=== PATIENT | female | born 1970 | race Caucasian/White ===

== ENCOUNTER 2017-11-03 06:10 | Inpatient (IN) | payer MEDICAID ==
[~2017-11-03] VITALS: Ht 170.2 cm; Wt 90.3 kg
[~2017-11-03 06:10] MED LIST: ALBU8.5H8 IH; ASPI81TA52 PO; ATOR80TA PO; CLOP75TA33 PO; FLO44IN INH; FLUT16SP26 BOTHNARES; HYDR-569 PO; LISI-600 PO; METF500T PO; METO50TA17 PO; NITR0.4T48 SL; PANT-47 PO; SENN1TAB72 PO; ZOLP5TAB8 PO
[2017-11-03] MEDS ORDERED: azithromycin/NS 500mg/250ml 250 ML IV ONE (07:40)
[2017-11-03] MEDS ORDERED: methylPREDNISolone sod succ 125mg/2ml vial IV ONE (07:40)
[2017-11-03] MEDS ORDERED: normal saline 1000ML IV soln IVB ONE (07:40)
[2017-11-03] MEDS ORDERED: albuterol 2.5 MG/3 ML nebule NEB ONE ×2 (07:40→11:40)
[2017-11-03 08:11] LABS: ABG BASE EXCESS 0.6 mmol/L (-2.0-3.0); ABG HCO3 23.7 mmol/L (22.0-26.0); ABG OXYGEN SATURATION 90.8 % (95-98); ABG PCO2 (T) 33.6 mmHg (32.0-45.0); ABG PH (T) 7.466 (7.350-7.450); ABG PO2 (T) 52.4 mmHg (83-108); ALLEN'S TEST Positive; FCOHb 0.4 % (0.5-1.5); FMetHb 0.1 % (0.3-1.12); FO2Hb 90.3 % (94-100); RESPIRATORY RATE (OBSERVED) 20 b/min; TOTAL HEMOGLOBIN 14.9 G/dl (12.0-16.0)
[2017-11-03 08:42] LABS: BASOPHILS % (AUTO) 0.2 % (0-1); EOSINOPHILS % (AUTO) 0 % (0-6); HEMATOCRIT 43.2 % (35.0-45.0); LYMPHOCYTES # (AUTO) 1.2 X10'3 (1.1-4.8); LYMPHOCYTES % (AUTO) 18.1 % (21-51); MEAN CORPUSCULAR HEMOGLOBIN 30.9 PG (27.0-31.0); MEAN CORPUSCULAR HGB CONC 34.6 % (33.0-36.5); MEAN CORPUSCULAR VOLUME 89.2 FL (78-98); MEAN PLATELET VOLUME 10.1 FL (7.4-10.4); MONOCYTES # (AUTO) 0.6 X10'3 (0-0.9); MONOCYTES % (AUTO) 8.9 % (2-12); NEUTROPHILS # (AUTO) 4.8 X10'3 (1.8-7.7); NEUTROPHILS % (AUTO) 72.8 % (42-75); PLATELET COUNT 145 X10'3 (140-440); RED BLOOD COUNT 4.85 X10'6 (4.20-5.60); RED CELL DISTRIBUTION WIDTH 12.6 % (11.5-14.5); WHITE BLOOD COUNT 6.6 X10'3 (4.5-11.0)
[2017-11-03 08:51] LABS: PARTIAL THROMBOPLASTIN TIME 25 SECONDS (22-32); PROTHROMBIN TIME 10.6 SECONDS (9.0-12.0)
[2017-11-03 09:16] LABS: ALANINE AMINOTRANSFERASE 35 U/L (12-78); ALBUMIN 2.9 G/DL (3.4-5.0); ALBUMIN/GLOBULIN RATIO 0.6 (1.1-1.5); ALKALINE PHOSPHATASE 94 IU/L (46-116); ANION GAP 14 (8-16); ASPARTATE AMINO TRANSFERASE 29 U/L (10-37); BILIRUBIN,TOTAL 0.5 MG/DL (0.1-1.0); BLOOD UREA NITROGEN 15 MG/DL (7-18); BUN/CREATININE RATIO 12.5 (6.6-38.0); CALCIUM 8.7 MG/DL (8.5-10.1); CHLORIDE 96 MMOL/L (99-107); GLUCOSE 310 MG/DL (70-104); POTASSIUM 3.3 MMOL/L (3.5-5.1); SODIUM 136 MMOL/L (135-145); TOTAL CARBON DIOXIDE 26.5 MMOL/L (24-32); TOTAL PROTEIN 7.7 G/DL (6.4-8.2); eGFR 48 ML/MIN
[2017-11-03] MEDS ORDERED: acetaminophen 325mg tablet PO ONE (10:50)
[2017-11-03] MEDS ORDERED: MULT-933 PO (11:37)
[2017-11-03] MEDS ORDERED: sodium chloride 0.45% 1,000 ML IV SCH (12:16)
[2017-11-03] MEDS ORDERED: acetaminophen 325mg tablet PO PRN (12:20)
[2017-11-03] MEDS ORDERED: potassium Cl 40MEQ/NS 500ml 500 ML IV PRN ×2 (12:20)
[2017-11-03] MEDS: K and/or MAG REPLACEMENT MC SCH (12:20)
[2017-11-03] MEDS ORDERED: magnesium hydroxide 30ml (MOM) UD suspension PO PRN (12:20)
[2017-11-03] MEDS ORDERED: ondansetron/PF 4mg/2ml inj IV PRN (12:20)
[2017-11-03] MEDS ORDERED: potassium Cl 20 mEq SR tablet PO PRN (12:20)
[2017-11-03] MEDS ORDERED: mag hydrox/Alum hydrox/simeth 30ml oral suspension PO PRN (12:20)
[2017-11-03] MEDS: potassium CL 20mEq in D5-1/2NS 1,000 ML IV SCH (15:57)
[2017-11-03 18:30] VITALS: BP 149/88
[2017-11-03] MEDS ORDERED: temazepam 15mg capsule PO PRN (21:00)
[2017-11-03] MEDS ORDERED: temazepam 15mg capsule PO ONE (22:55)
[2017-11-04] VITALS: BP 148/96
[2017-11-04] MEDS ORDERED: glucagon, human recombinant 1mg kit SUBCUT PRN (02:00)
[2017-11-04] MEDS ORDERED: MESSAGE TO PHARMACY PO ONE (02:00)
[2017-11-04] MEDS ORDERED: dextrose 50%-water 50ml dispensing syringe IV PRN ×2 (02:00)
[2017-11-04] MEDS ORDERED: dextrose ORAL solution 15 GM/59 ML bottle PO PRN ×2 (02:00)
[2017-11-04 07:46] VITALS: BP 156/98
[2017-11-04] MEDS: K and/or MAG REPLACEMENT MC SCH (08:00)
[2017-11-04] MEDS: azithromycin/NS 500mg/250ml 250 ML IV SCH (08:58)
[2017-11-04] MEDS: insulin Lispro (HumaLOG) vial - multi-dose SQ SCH ×2 (09:07→14:26)
[2017-11-04] MEDS: albuterol 2.5 MG/3 ML nebule NEB PRN ×2 (09:39→14:42)
[2017-11-04 11:00] VITALS: BP 123/84
[2017-11-04] MEDS: potassium CL 20mEq in D5-1/2NS 1,000 ML IV SCH ×2 (11:00→17:14)
[2017-11-04] MEDS: levoFLOXACIN 750MG TABLET PO SCH (12:05)
[2017-11-04] MEDS: potassium Cl 20 mEq SR tablet PO PRN ×3 (12:06→21:20)
[2017-11-04] MEDS: lactobacillus rhamnosus 10,000 MMU CELLS/CAPSULE PO SCH (17:13)
[2017-11-04 18:00] VITALS: BP 123/78
[2017-11-04] MEDS ORDERED: insulin glargine (Lantus) pen - multi-dose SQ SCH (21:00)
[2017-11-05] VITALS: BP 145/100
[2017-11-05] MEDS ORDERED: NYSPWD TP (03:20)
[2017-11-05] MEDS: azithromycin/NS 500mg/250ml 250 ML IV SCH (07:39)
[2017-11-05] MEDS: lactobacillus rhamnosus 10,000 MMU CELLS/CAPSULE PO SCH (07:42)
[2017-11-05] MEDS: albuterol 2.5 MG/3 ML nebule NEB PRN (07:43)
[2017-11-05 07:55] LABS: ALANINE AMINOTRANSFERASE 88 U/L (12-78); ALBUMIN 2.4 G/DL (3.4-5.0); ALBUMIN/GLOBULIN RATIO 0.6 (1.1-1.5); ALKALINE PHOSPHATASE 101 IU/L (46-116); ANION GAP 7 (8-16); ASPARTATE AMINO TRANSFERASE 81 U/L (10-37); BILIRUBIN,TOTAL 0.3 MG/DL (0.1-1.0); BLOOD UREA NITROGEN 18 MG/DL (7-18); BUN/CREATININE RATIO 18.2 (6.6-38.0); CALCIUM 8.5 MG/DL (8.5-10.1); CHLORIDE 104 MMOL/L (99-107); CREATININE 0.99 MG/DL (0.40-0.90); GLUCOSE 229 MG/DL (70-104); POTASSIUM 4.1 MMOL/L (3.5-5.1); SODIUM 140 MMOL/L (135-145); TOTAL CARBON DIOXIDE 28.6 MMOL/L (24-32); TOTAL PROTEIN 6.4 G/DL (6.4-8.2); eGFR 60 ML/MIN
[2017-11-05 08:00] VITALS: BP 152/100
[2017-11-05] MEDS: K and/or MAG REPLACEMENT MC SCH (08:00)
[2017-11-05] MEDS: insulin Lispro (HumaLOG) vial - multi-dose SQ SCH (09:30)
[2017-11-05] MEDS ORDERED: LEVO750T46 PO (10:58)
[2017-11-05 11:00] VITALS: BP 134/86
[2017-11-05] MEDS ORDERED: AZIT500T3 PO (11:20)
[2017-11-05] MEDS: levoFLOXACIN 750MG TABLET PO SCH (11:48)
== END 2017-11-05 12:46 | disposition home or self-care (01) | DRG 139 ==
LOC: ER 06:10 → ED HOLD 12:16 → SUR 3N 18:32
PROVIDERS: ADMIT Internal Medicine; ATTEND Internal Medicine
DX: J18.9 Pneumonia, unspecified organism (principal); J96.91 Respiratory failure, unspecified with hypoxia; J44.0 Chronic obstructive pulmonary disease with (acute) lower respiratory infection; J44.1 Chronic obstructive pulmonary disease with (acute) exacerbation; I10 Essential (primary) hypertension; E87.6 Hypokalemia; E11.9 Type 2 diabetes mellitus without complications; E78.00 Pure hypercholesterolemia, unspecified; E78.5 Hyperlipidemia, unspecified; E89.0 Postprocedural hypothyroidism; F32.9 Major depressive disorder, single episode, unspecified; F41.9 Anxiety disorder, unspecified; I25.10 Atherosclerotic heart disease of native coronary artery without angina pectoris; I25.2 Old myocardial infarction; Z80.9 Family history of malignant neoplasm, unspecified; Z82.3 Family history of stroke; Z83.3 Family history of diabetes mellitus; Z85.3 Personal history of malignant neoplasm of breast; Z88.1 Allergy status to other antibiotic agents; Z90.710 Acquired absence of both cervix and uterus; Z88.8 Allergy status to other drugs, medicaments and biological substances; Z79.82 Long term (current) use of aspirin; Z79.84 Long term (current) use of oral hypoglycemic drugs; Z79.899 Other long term (current) drug therapy; Z90.49 Acquired absence of other specified parts of digestive tract; Z72.0 Tobacco use
CPT/HCPCS: 36415; 36600; 71045; 80053; 82803; 82948; 83036; 83605; 84132; 84484; 85018; 85025; 85610; 85730; 87040; 87070; 87502; 87503; 93005; 94640; 94667; 94760; 96365; 96375; 99291; J0456; J1815; J2930; J7030

== ENCOUNTER 2017-11-28 01:06 | Inpatient (IN) | payer MEDICAID ==
[~2017-11-28] VITALS: Ht 170.2 cm; Wt 95.5 kg
[~2017-11-28 01:06] MED LIST changes: -HYDR-569 PO; +LEVO750T46 PO; +MULT-933 PO; +NYSPWD TP
[2017-11-28] MEDS ORDERED: furosemide 10 MG/1 ML 10ml inj IV ONE (02:00)
[2017-11-28 02:13] LABS: ALANINE AMINOTRANSFERASE 70 U/L (12-78); ALBUMIN 2.7 G/DL (3.4-5.0); ALBUMIN/GLOBULIN RATIO 0.7 (1.1-1.5); ALKALINE PHOSPHATASE 137 IU/L (46-116); ANION GAP 7 (8-16); ASPARTATE AMINO TRANSFERASE 36 U/L (10-37); BILIRUBIN,TOTAL 0.4 MG/DL (0.1-1.0); BLOOD UREA NITROGEN 17 MG/DL (7-18); BUN/CREATININE RATIO 17.2 (6.6-38.0); CALCIUM 8.5 MG/DL (8.5-10.1); CHLORIDE 101 MMOL/L (99-107); CREATININE 0.99 MG/DL (0.40-0.90); GLUCOSE 351 MG/DL (70-104); SODIUM 139 MMOL/L (135-145); TOTAL CARBON DIOXIDE 31.1 MMOL/L (24-32); TOTAL PROTEIN 6.5 G/DL (6.4-8.2); eGFR 60 ML/MIN
[2017-11-28 02:42] LABS: BASOPHILS # (AUTO) 0.1 X10'3 (0-0.2); BASOPHILS % (AUTO) 1.1 % (0-1); EOSINOPHILS # (AUTO) 0.3 X10'3 (0-0.9); HEMATOCRIT 39.5 % (35.0-45.0); HEMOGLOBIN 13.7 g/dl (12.0-16.0); LYMPHOCYTES # (AUTO) 1.7 X10'3 (1.1-4.8); LYMPHOCYTES % (AUTO) 17.2 % (21-51); MEAN CORPUSCULAR HEMOGLOBIN 31.3 PG (27.0-31.0); MEAN CORPUSCULAR HGB CONC 34.8 % (33.0-36.5); MEAN PLATELET VOLUME 9.7 FL (7.4-10.4); MONOCYTES # (AUTO) 0.6 X10'3 (0-0.9); MONOCYTES % (AUTO) 6.3 % (2-12); NEUTROPHILS # (AUTO) 7.1 X10'3 (1.8-7.7); NEUTROPHILS % (AUTO) 72.4 % (42-75); PLATELET COUNT 200 X10'3 (140-440); RED BLOOD COUNT 4.39 X10'6 (4.20-5.60); RED CELL DISTRIBUTION WIDTH 13.4 % (11.5-14.5); WHITE BLOOD COUNT 9.9 X10'3 (4.5-11.0)
[2017-11-28 02:56] LABS: D-DIMER 1.33 MG/L FEU (0-0.50); PARTIAL THROMBOPLASTIN TIME 23 SECONDS (22-32); PROTHROMBIN TIME 10.7 SECONDS (9.0-12.0)
[2017-11-28] MEDS ORDERED: iohexol 350MG/ML 100ml bottle IV ONE (03:18)
[2017-11-28] MEDS ORDERED: magnesium 4gm in 100ml NS 100 ML IV PRN (05:05)
[2017-11-28] MEDS ORDERED: ondansetron/PF 4mg/2ml inj IV PRN (05:05)
[2017-11-28] MEDS ORDERED: potassium Cl 40MEQ/NS 500ml 500 ML IV PRN ×2 (05:05)
[2017-11-28] MEDS ORDERED: magnesium 2GM in 50ml NS 50 ML IV PRN (05:05)
[2017-11-28] MEDS ORDERED: potassium Cl 20 mEq SR tablet PO PRN (05:05)
[2017-11-28] MEDS ORDERED: dextrose ORAL solution 15 GM/59 ML bottle PO PRN ×2 (05:10)
[2017-11-28] MEDS ORDERED: glucagon, human recombinant 1mg kit SUBCUT PRN (05:10)
[2017-11-28] MEDS ORDERED: dextrose 50%-water 50ml dispensing syringe IV PRN ×2 (05:10)
[2017-11-28] MEDS ORDERED: MESSAGE TO PHARMACY PO ONE (05:10)
[2017-11-28] MEDS ORDERED: albuterol 2.5 MG/3 ML nebule NEB PRN (05:50)
[2017-11-28] MEDS: K and/or MAG REPLACEMENT MC SCH (08:00)
[2017-11-28] MEDS: multivitamins, therapeutics tablet PO SCH (08:12)
[2017-11-28] MEDS: metFORMIN 500mg tablet PO SCH ×2 (08:12→21:19)
[2017-11-28] MEDS: aspirin 81mg tablet.DR PO SCH (08:12)
[2017-11-28] MEDS: metoprolol tartrate 50mg tablet PO SCH ×2 (08:12→21:19)
[2017-11-28] MEDS: clopidogrel 75mg tablet PO SCH (08:12)
[2017-11-28] MEDS: lisinopril 20mg tablet PO SCH (08:12)
[2017-11-28] MEDS: pantoprazole 40mg Tablet.DR PO SCH (08:13)
[2017-11-28] MEDS: furosemide 10 MG/1 ML 10ml inj IV SCH ×2 (08:14→21:20)
[2017-11-28] MEDS: fluticasone furoate 100MCG/puff inhaler IH SCH (09:06)
[2017-11-28 09:37] VITALS: BP 112/77
[2017-11-28] MEDS ORDERED: pneumococcal 23-VAL P-sac vacc 25 mcg/0.5ml vial IMVAC ONE (10:00)
[2017-11-28 11:00] VITALS: BP 106/75
[2017-11-28] MEDS: insulin Lispro (HumaLOG) vial - multi-dose SQ SCH ×2 (13:31→18:48)
[2017-11-28 15:00] VITALS: BP 114/80
[2017-11-28 19:00] VITALS: BP 115/80
[2017-11-28] MEDS: insulin glargine (Lantus) pen - multi-dose SQ SCH (21:17)
[2017-11-28] MEDS: atorvastatin 20mg tablet PO SCH (21:18)
[2017-11-28] MEDS: zolpidem 5mg tablet PO SCH (21:19)
[2017-11-28 23:00] VITALS: BP 115/80
[2017-11-29 03:00] VITALS: BP 108/68
[2017-11-29 05:12] LABS: BASOPHILS # (AUTO) 0.1 X10'3 (0-0.2); BASOPHILS % (AUTO) 0.8 % (0-1); EOSINOPHILS # (AUTO) 0.4 X10'3 (0-0.9); HEMOGLOBIN 13.5 g/dl (12.0-16.0); LYMPHOCYTES # (AUTO) 2.7 X10'3 (1.1-4.8); LYMPHOCYTES % (AUTO) 26.4 % (21-51); MEAN CORPUSCULAR HEMOGLOBIN 31.1 PG (27.0-31.0); MEAN CORPUSCULAR HGB CONC 34.5 % (33.0-36.5); MEAN CORPUSCULAR VOLUME 90.1 FL (78-98); MEAN PLATELET VOLUME 9.9 FL (7.4-10.4); MONOCYTES # (AUTO) 0.6 X10'3 (0-0.9); MONOCYTES % (AUTO) 6.1 % (2-12); NEUTROPHILS # (AUTO) 6.4 X10'3 (1.8-7.7); NEUTROPHILS % (AUTO) 62.7 % (42-75); PLATELET COUNT 200 X10'3 (140-440); RED BLOOD COUNT 4.32 X10'6 (4.20-5.60); RED CELL DISTRIBUTION WIDTH 13.7 % (11.5-14.5); WHITE BLOOD COUNT 10.1 X10'3 (4.5-11.0)
[2017-11-29 05:19] LABS: ALBUMIN 2.3 G/DL (3.4-5.0); ANION GAP 8 (8-16); BLOOD UREA NITROGEN 18 MG/DL (7-18); BUN/CREATININE RATIO 16.4 (6.6-38.0); CALCIUM 8.5 MG/DL (8.5-10.1); CHLORIDE 102 MMOL/L (99-107); GLUCOSE 232 MG/DL (70-104); MAGNESIUM 1.3 MG/DL (1.5-2.4); POTASSIUM 3.2 MMOL/L (3.5-5.1); SODIUM 141 MMOL/L (135-145); TOTAL CARBON DIOXIDE 30.7 MMOL/L (24-32); eGFR 53 ML/MIN
[2017-11-29] MEDS: pantoprazole 40mg Tablet.DR PO SCH (07:16)
[2017-11-29] MEDS: multivitamins, therapeutics tablet PO SCH (07:17)
[2017-11-29] MEDS: metoprolol tartrate 50mg tablet PO SCH ×2 (07:17→20:00)
[2017-11-29] MEDS: aspirin 81mg tablet.DR PO SCH (07:18)
[2017-11-29] MEDS: potassium Cl 20 mEq SR tablet PO PRN ×3 (07:22→17:43)
[2017-11-29] MEDS: lisinopril 20mg tablet PO SCH (07:23)
[2017-11-29] MEDS: metFORMIN 500mg tablet PO SCH ×2 (07:24→19:53)
[2017-11-29] MEDS: magnesium Cl slow-release 64mg tablet PO PRN ×2 (07:25→17:43)
[2017-11-29] MEDS: clopidogrel 75mg tablet PO SCH (07:27)
[2017-11-29] MEDS: furosemide 10 MG/1 ML 10ml inj IV SCH ×2 (07:30→19:53)
[2017-11-29] MEDS: K and/or MAG REPLACEMENT MC SCH (07:32)
[2017-11-29] MEDS: insulin Lispro (HumaLOG) vial - multi-dose SQ SCH ×3 (08:08→18:53)
[2017-11-29 10:21] VITALS: BP 113/74
[2017-11-29 11:00] VITALS: BP 97/65
[2017-11-29] MEDS: fluticasone furoate 100MCG/puff inhaler IH SCH (13:16)
[2017-11-29 15:00] VITALS: BP 109/74
[2017-11-29 19:00] VITALS: BP 105/75
[2017-11-29] MEDS: atorvastatin 20mg tablet PO SCH (19:53)
[2017-11-29] MEDS: insulin glargine (Lantus) pen - multi-dose SQ SCH (21:21)
[2017-11-29] MEDS: zolpidem 5mg tablet PO SCH (22:51)
[2017-11-30] VITALS: BP 121/81
[2017-11-30 05:27] LABS: BASOPHILS # (AUTO) 0.1 X10'3 (0-0.2); BASOPHILS % (AUTO) 0.6 % (0-1); EOSINOPHILS # (AUTO) 0.3 X10'3 (0-0.9); EOSINOPHILS % (AUTO) 2.4 % (0-6); HEMATOCRIT 42.3 % (35.0-45.0); HEMOGLOBIN 14.4 g/dl (12.0-16.0); LYMPHOCYTES # (AUTO) 3.1 X10'3 (1.1-4.8); LYMPHOCYTES % (AUTO) 25.3 % (21-51); MEAN CORPUSCULAR HEMOGLOBIN 30.6 PG (27.0-31.0); MEAN CORPUSCULAR VOLUME 90.2 FL (78-98); MEAN PLATELET VOLUME 10.1 FL (7.4-10.4); MONOCYTES # (AUTO) 0.8 X10'3 (0-0.9); MONOCYTES % (AUTO) 6.4 % (2-12); NEUTROPHILS # (AUTO) 7.9 X10'3 (1.8-7.7); NEUTROPHILS % (AUTO) 65.3 % (42-75); PLATELET COUNT 225 X10'3 (140-440); RED BLOOD COUNT 4.69 X10'6 (4.20-5.60); RED CELL DISTRIBUTION WIDTH 13.8 % (11.5-14.5); WHITE BLOOD COUNT 12.1 X10'3 (4.5-11.0)
[2017-11-30 05:55] LABS: ALBUMIN 2.6 G/DL (3.4-5.0); ANION GAP 8 (8-16); BLOOD UREA NITROGEN 24 MG/DL (7-18); BUN/CREATININE RATIO 20.5 (6.6-38.0); CHLORIDE 102 MMOL/L (99-107); CREATININE 1.17 MG/DL (0.40-0.90); GLUCOSE 179 MG/DL (70-104); MAGNESIUM 1.4 MG/DL (1.5-2.4); POTASSIUM 3.8 MMOL/L (3.5-5.1); SODIUM 141 MMOL/L (135-145); TOTAL CARBON DIOXIDE 31.3 MMOL/L (24-32); eGFR 49 ML/MIN
[2017-11-30 08:00] VITALS: BP 122/79
[2017-11-30] MEDS: K and/or MAG REPLACEMENT MC SCH (08:00)
[2017-11-30] MEDS: fluticasone furoate 100MCG/puff inhaler IH SCH (08:22)
[2017-11-30] MEDS: furosemide 10 MG/1 ML 10ml inj IV SCH ×2 (08:24→19:37)
[2017-11-30] MEDS: clopidogrel 75mg tablet PO SCH (08:25)
[2017-11-30] MEDS: aspirin 81mg tablet.DR PO SCH (08:25)
[2017-11-30] MEDS: metoprolol tartrate 50mg tablet PO SCH ×2 (08:25→19:40)
[2017-11-30] MEDS: metFORMIN 500mg tablet PO SCH (08:25)
[2017-11-30] MEDS: pantoprazole 40mg Tablet.DR PO SCH (08:25)
[2017-11-30] MEDS: multivitamins, therapeutics tablet PO SCH (08:26)
[2017-11-30] MEDS: lisinopril 20mg tablet PO SCH (08:26)
[2017-11-30] MEDS: insulin Lispro (HumaLOG) vial - multi-dose SQ SCH ×3 (08:41→19:46)
[2017-11-30] MEDS: acetaminophen 325mg tablet PO PRN ×2 (08:45→23:36)
[2017-11-30 11:53] VITALS: BP 101/57
[2017-11-30 19:30] VITALS: BP 97/64
[2017-11-30 19:38] VITALS: BP 97/64
[2017-11-30 23:30] VITALS: BP 95/58
[2017-11-30] MEDS: atorvastatin 20mg tablet PO SCH (23:35)
[2017-11-30] MEDS: zolpidem 5mg tablet PO SCH (23:36)
[2017-11-30] MEDS: insulin glargine (Lantus) pen - multi-dose SQ SCH (23:39)
[2017-12-01 05:59] LABS: BASOPHILS # (AUTO) 0.1 X10'3 (0-0.2); BASOPHILS % (AUTO) 0.6 % (0-1); EOSINOPHILS # (AUTO) 0.4 X10'3 (0-0.9); EOSINOPHILS % (AUTO) 3.4 % (0-6); HEMATOCRIT 39.8 % (35.0-45.0); HEMOGLOBIN 13.6 g/dl (12.0-16.0); LYMPHOCYTES # (AUTO) 2.7 X10'3 (1.1-4.8); LYMPHOCYTES % (AUTO) 25.7 % (21-51); MEAN CORPUSCULAR HEMOGLOBIN 30.9 PG (27.0-31.0); MEAN CORPUSCULAR HGB CONC 34.2 % (33.0-36.5); MEAN CORPUSCULAR VOLUME 90.4 FL (78-98); MEAN PLATELET VOLUME 10.1 FL (7.4-10.4); MONOCYTES # (AUTO) 0.7 X10'3 (0-0.9); MONOCYTES % (AUTO) 6.9 % (2-12); NEUTROPHILS # (AUTO) 6.7 X10'3 (1.8-7.7); NEUTROPHILS % (AUTO) 63.4 % (42-75); PLATELET COUNT 197 X10'3 (140-440); RED CELL DISTRIBUTION WIDTH 13.6 % (11.5-14.5); WHITE BLOOD COUNT 10.6 X10'3 (4.5-11.0)
[2017-12-01 06:08] LABS: ALBUMIN 2.4 G/DL (3.4-5.0); ANION GAP 7 (8-16); BLOOD UREA NITROGEN 26 MG/DL (7-18); BUN/CREATININE RATIO 19.5 (6.6-38.0); CALCIUM 8.7 MG/DL (8.5-10.1); CHLORIDE 104 MMOL/L (99-107); CREATININE 1.33 MG/DL (0.40-0.90); GLUCOSE 175 MG/DL (70-104); MAGNESIUM 2.3 MG/DL (1.5-2.4); POTASSIUM 3.2 MMOL/L (3.5-5.1); SODIUM 142 MMOL/L (135-145); TOTAL CARBON DIOXIDE 30.8 MMOL/L (24-32); eGFR 43 ML/MIN
[2017-12-01 07:00] VITALS: BP 101/66
[2017-12-01] MEDS: K and/or MAG REPLACEMENT MC SCH (08:00)
[2017-12-01] MEDS: pantoprazole 40mg Tablet.DR PO SCH (08:11)
[2017-12-01] MEDS: lisinopril 20mg tablet PO SCH (08:11)
[2017-12-01] MEDS: multivitamins, therapeutics tablet PO SCH (08:12)
[2017-12-01] MEDS: clopidogrel 75mg tablet PO SCH (08:12)
[2017-12-01] MEDS: metoprolol tartrate 50mg tablet PO SCH (08:12)
[2017-12-01] MEDS: aspirin 81mg tablet.DR PO SCH (08:12)
[2017-12-01 08:15] VITALS: BP 124/80
[2017-12-01] MEDS ORDERED: magnesium Cl slow-release 64mg tablet PO PRN (08:20)
[2017-12-01] MEDS ORDERED: magnesium 2GM in 50ml NS 50 ML IV PRN (08:20)
[2017-12-01] MEDS ORDERED: magnesium 4gm in 100ml NS 100 ML IV PRN (08:20)
[2017-12-01] MEDS ORDERED: potassium Cl 40MEQ/NS 500ml 500 ML IV PRN ×2 (08:20)
[2017-12-01] MEDS ORDERED: potassium Cl 20 mEq SR tablet PO PRN (08:20)
[2017-12-01] MEDS: furosemide 10 MG/1 ML 10ml inj IV SCH (08:22)
[2017-12-01] MEDS: insulin Lispro (HumaLOG) vial - multi-dose SQ SCH ×3 (09:46→19:27)
[2017-12-01] MEDS: potassium Cl 20 mEq SR tablet PO PRN (09:47)
[2017-12-01 11:00] VITALS: BP 108/78
[2017-12-01] MEDS: acetaminophen 325mg tablet PO PRN (12:46)
[2017-12-01] MEDS: fluticasone furoate 100MCG/puff inhaler IH SCH (16:50)
[2017-12-01 20:00] VITALS: BP_SYST 119; BP_SYST 126; BP_DIAS 66; BP_DIAS 80
[2017-12-01] MEDS: insulin glargine (Lantus) pen - multi-dose SQ SCH (21:34)
[2017-12-01] MEDS: zolpidem 5mg tablet PO SCH (21:34)
[2017-12-01] MEDS: atorvastatin 20mg tablet PO SCH (21:35)
[2017-12-01] MEDS: carVEDilol 12.5mg tablet PO SCH (21:35)
[2017-12-01] MEDS ORDERED: ibuprofen tablet 400 MG TABLET PO PRN (23:05)
[2017-12-02] VITALS: BP 126/85
[2017-12-02] MEDS: acetaminophen 325mg tablet PO PRN (00:38)
[2017-12-02] MEDS ORDERED: HYDROcodone/acetaminophen 5mg/325mg tablet PO ONE (03:35)
[2017-12-02] MEDS: potassium Cl 20 mEq SR tablet PO PRN (06:07)
[2017-12-02 06:29] LABS: BASOPHILS % (AUTO) 0.4 % (0-1); EOSINOPHILS # (AUTO) 0.3 X10'3 (0-0.9); EOSINOPHILS % (AUTO) 2.7 % (0-6); HEMOGLOBIN 13.8 g/dl (12.0-16.0); LYMPHOCYTES # (AUTO) 1.8 X10'3 (1.1-4.8); LYMPHOCYTES % (AUTO) 14.9 % (21-51); MEAN CORPUSCULAR HGB CONC 34.4 % (33.0-36.5); MEAN CORPUSCULAR VOLUME 90.1 FL (78-98); MEAN PLATELET VOLUME 10.4 FL (7.4-10.4); MONOCYTES # (AUTO) 0.7 X10'3 (0-0.9); MONOCYTES % (AUTO) 5.5 % (2-12); NEUTROPHILS # (AUTO) 9.4 X10'3 (1.8-7.7); NEUTROPHILS % (AUTO) 76.5 % (42-75); PLATELET COUNT 195 X10'3 (140-440); RED BLOOD COUNT 4.44 X10'6 (4.20-5.60); RED CELL DISTRIBUTION WIDTH 13.6 % (11.5-14.5); WHITE BLOOD COUNT 12.3 X10'3 (4.5-11.0)
[2017-12-02 07:00] VITALS: BP 149/96
[2017-12-02 07:01] LABS: ALBUMIN 2.6 G/DL (3.4-5.0); ANION GAP 9 (8-16); BLOOD UREA NITROGEN 25 MG/DL (7-18); CALCIUM 8.9 MG/DL (8.5-10.1); CHLORIDE 100 MMOL/L (99-107); CREATININE 1.19 MG/DL (0.40-0.90); GLUCOSE 268 MG/DL (70-104); MAGNESIUM 1.7 MG/DL (1.5-2.4); POTASSIUM 3.9 MMOL/L (3.5-5.1); SODIUM 138 MMOL/L (135-145); eGFR 48 ML/MIN
[2017-12-02 07:30] LABS: LARGE PLATELETS FEW; PLATELET ESTIMATE NORMAL
[2017-12-02] MEDS: K and/or MAG REPLACEMENT MC SCH (08:00)
[2017-12-02] MEDS: fluticasone furoate 100MCG/puff inhaler IH SCH (08:37)
[2017-12-02] MEDS: furosemide 20 MG/2 ML vial IV SCH ×2 (09:12→19:23)
[2017-12-02] MEDS: clopidogrel 75mg tablet PO SCH (09:13)
[2017-12-02] MEDS: pantoprazole 40mg Tablet.DR PO SCH (09:13)
[2017-12-02] MEDS: aspirin 81mg tablet.DR PO SCH (09:13)
[2017-12-02] MEDS: carVEDilol 12.5mg tablet PO SCH ×2 (09:14→19:24)
[2017-12-02] MEDS: lisinopril 20mg tablet PO SCH (09:14)
[2017-12-02] MEDS: multivitamins, therapeutics tablet PO SCH (10:25)
[2017-12-02] MEDS: insulin Lispro (HumaLOG) vial - multi-dose SQ SCH ×2 (10:27→19:06)
[2017-12-02 11:44] VITALS: BP 113/74
[2017-12-02] MEDS ORDERED: HYDROcodone/acetaminophen 10/325mg tab PO PRN (11:50)
[2017-12-02] MEDS: HYDROcodone/acetaminophen 10/325mg tab PO PRN ×2 (12:13→17:53)
[2017-12-02] MEDS ORDERED: FURO10VI51 PO (19:06)
[2017-12-02] MEDS ORDERED: CARV-50 PO (19:06)
[2017-12-02] MEDS: atorvastatin 20mg tablet PO SCH (19:24)
[2017-12-02] MEDS: zolpidem 5mg tablet PO SCH (19:24)
== END 2017-12-02 19:55 | disposition home or self-care (01) | DRG 194 ==
LOC: ER 01:07 → ED HOLD 05:46 → PCU 3S 09:15 → OBSVTOIN 15:46 → SUR 3N 11-29 23:00
PROVIDERS: ADMIT Family Medicine; ATTEND Legal Medicine
PROC: B32T1ZZ Computerized Tomography (CT Scan) of Left Pulmonary Artery using Low Osmolar Contrast (ICD-10-PCS; principal; 2017-11-28)
PROC: B3201ZZ Computerized Tomography (CT Scan) of Thoracic Aorta using Low Osmolar Contrast (ICD-10-PCS; 2017-11-28)
PROC: B32S1ZZ Computerized Tomography (CT Scan) of Right Pulmonary Artery using Low Osmolar Contrast (ICD-10-PCS; 2017-11-28)
DX: I13.0 Hypertensive heart and chronic kidney disease with heart failure and stage 1 through stage 4 chronic kidney disease, or unspecified chronic kidney disease (principal); E11.22 Type 2 diabetes mellitus with diabetic chronic kidney disease; I50.23 Acute on chronic systolic (congestive) heart failure; N18.9 Chronic kidney disease, unspecified; E78.00 Pure hypercholesterolemia, unspecified; E78.5 Hyperlipidemia, unspecified; I25.10 Atherosclerotic heart disease of native coronary artery without angina pectoris; F32.9 Major depressive disorder, single episode, unspecified; F41.9 Anxiety disorder, unspecified; J45.909 Unspecified asthma, uncomplicated; Z82.3 Family history of stroke; Z82.49 Family history of ischemic heart disease and other diseases of the circulatory system; Z83.3 Family history of diabetes mellitus; I25.2 Old myocardial infarction; Z85.3 Personal history of malignant neoplasm of breast; Z87.891 Personal history of nicotine dependence; Z90.12 Acquired absence of left breast and nipple; Z92.3 Personal history of irradiation; Z23 Encounter for immunization; Z88.1 Allergy status to other antibiotic agents; Z79.899 Other long term (current) drug therapy
CPT/HCPCS: 36415; 71045; 71275; 73020; 80048; 80053; 82948; 83036; 83735; 83880; 84443; 84484; 85025; 85379; 85610; 85730; 87070; 90471; 90732; 93005; 93306; 93971; 94640; 94760; 96374; 99285; G0378; J1815; J1940; J3475; J7030; Q9967

== ENCOUNTER 2018-03-30 08:19 | Outpatient (CLI) | payer MEDICAID ==
[~2018-03-30 08:19] MED LIST changes: +CARV-50 PO; -FLUT16SP26 BOTHNARES; +FURO10VI51 PO; -LEVO750T46 PO; -METO50TA17 PO; -NYSPWD TP
[2018-03-30 09:13] LABS: BASOPHILS # (AUTO) 0.1 X10'3 (0-0.2); BASOPHILS % (AUTO) 0.3 % (0-1); EOSINOPHILS # (AUTO) 0.3 X10'3 (0-0.9); EOSINOPHILS % (AUTO) 1.7 % (0-6); HEMATOCRIT 34.8 % (35.0-45.0); LYMPHOCYTES # (AUTO) 3.8 X10'3 (1.1-4.8); LYMPHOCYTES % (AUTO) 24.3 % (21-51); MEAN CORPUSCULAR HEMOGLOBIN 31.2 PG (27.0-31.0); MEAN CORPUSCULAR HGB CONC 34.6 % (33.0-36.5); MEAN CORPUSCULAR VOLUME 90.1 FL (78-98); MEAN PLATELET VOLUME 9.6 FL (7.4-10.4); MONOCYTES % (AUTO) 6.5 % (2-12); NEUTROPHILS # (AUTO) 10.7 X10'3 (1.8-7.7); NEUTROPHILS % (AUTO) 67.2 % (42-75); PLATELET COUNT 283 X10'3 (140-440); RED BLOOD COUNT 3.86 X10'6 (4.20-5.60); RED CELL DISTRIBUTION WIDTH 13.8 % (11.5-14.5); WHITE BLOOD COUNT 15.9 X10'3 (4.5-11.0)
[2018-03-30 09:24] LABS: ALBUMIN 3.4 G/DL (3.4-5.0); ANION GAP 14 (8-16); BLOOD UREA NITROGEN 35 MG/DL (7-18); BUN/CREATININE RATIO 9.4 (6.6-38.0); CALCIUM 8.6 MG/DL (8.5-10.1); CHLORIDE 95 MMOL/L (99-107); CREATININE 3.72 MG/DL (0.40-0.90); GLUCOSE 366 MG/DL (70-104); POTASSIUM 3.6 MMOL/L (3.5-5.1); SODIUM 136 MMOL/L (135-145); TOTAL CARBON DIOXIDE 26.8 MMOL/L (24-32); eGFR 13 ML/MIN
[2018-03-30 09:25] LABS: PARTIAL THROMBOPLASTIN TIME 26 SECONDS (22-32); PROTHROMBIN TIME 10.7 SECONDS (9.0-12.0)
== END 2018-03-30 23:59 | disposition home or self-care (01) ==
LOC: SSTAY O 08:19 → EDSTATUS 04-03 18:30
PROVIDERS: ATTEND Internal Medicine Interventional Cardiology
DX: Z01.812 Encounter for preprocedural laboratory examination (principal); I25.810 Atherosclerosis of coronary artery bypass graft(s) without angina pectoris; I10 Essential (primary) hypertension; J44.9 Chronic obstructive pulmonary disease, unspecified; R94.31 Abnormal electrocardiogram [ECG] [EKG]; I50.23 Acute on chronic systolic (congestive) heart failure; Z87.891 Personal history of nicotine dependence; E11.9 Type 2 diabetes mellitus without complications; I42.0 Dilated cardiomyopathy
CPT/HCPCS: 36415; 80048; 85025; 85610; 85730

== ENCOUNTER 2018-04-03 17:28 | Inpatient (IN) | payer MEDICAID ==
[~2018-04-03] VITALS: Ht 170.2 cm; Wt 102.3 kg
[2018-04-03 19:10] LABS: ALANINE AMINOTRANSFERASE 30 U/L (12-78); ALBUMIN 3.1 G/DL (3.4-5.0); ALBUMIN/GLOBULIN RATIO 0.7 (1.1-1.5); ALKALINE PHOSPHATASE 155 IU/L (46-116); ANION GAP 12 (8-16); ASPARTATE AMINO TRANSFERASE 17 U/L (10-37); BILIRUBIN,TOTAL 0.3 MG/DL (0.1-1.0); BLOOD UREA NITROGEN 53 MG/DL (7-18); BUN/CREATININE RATIO 14.1 (6.6-38.0); CALCIUM 8.3 MG/DL (8.5-10.1); CHLORIDE 100 MMOL/L (99-107); CREATININE 3.75 MG/DL (0.40-0.90); GLUCOSE 341 MG/DL (70-104); POTASSIUM 3.6 MMOL/L (3.5-5.1); SODIUM 137 MMOL/L (135-145); TOTAL CARBON DIOXIDE 25.5 MMOL/L (24-32); TOTAL PROTEIN 7.4 G/DL (6.4-8.2); eGFR 13 ML/MIN
[2018-04-03] MEDS ORDERED: normal saline 1000ML IV soln IVB ONE (19:20)
[2018-04-03 19:32] LABS: BASOPHILS # (AUTO) 0.1 X10'3 (0-0.2); BASOPHILS % (AUTO) 0.5 % (0-1); EOSINOPHILS # (AUTO) 0.4 X10'3 (0-0.9); HEMATOCRIT 29.8 % (35.0-45.0); HEMOGLOBIN 10.3 g/dl (12.0-16.0); LYMPHOCYTES # (AUTO) 2.7 X10'3 (1.1-4.8); LYMPHOCYTES % (AUTO) 22.1 % (21-51); MEAN CORPUSCULAR HEMOGLOBIN 31.1 PG (27.0-31.0); MEAN CORPUSCULAR HGB CONC 34.5 % (33.0-36.5); MEAN CORPUSCULAR VOLUME 90.3 FL (78-98); MEAN PLATELET VOLUME 9.7 FL (7.4-10.4); MONOCYTES # (AUTO) 0.8 X10'3 (0-0.9); NEUTROPHILS # (AUTO) 8.1 X10'3 (1.8-7.7); NEUTROPHILS % (AUTO) 67.4 % (42-75); PLATELET COUNT 216 X10'3 (140-440); RED CELL DISTRIBUTION WIDTH 13.2 % (11.5-14.5)
[2018-04-03 19:57] LABS: CLARITY,URINE CLEAR (Clear); COLOR,URINE YELLOW (Yellow); GLUCOSE, URINE 500 mg/dl (Neg); KETONES,URINE NEGATIVE (Neg); LEUKOCYTE ESTERASE ,URINE SMALL (Neg); NITRITES, URINE NEGATIVE (Neg); OCCULT BLOOD,URINE TRACE-INTACT (Neg); PH,URINE 5.5 (4.8-8.0); PROTEIN,URINE 100 mg/dl (Neg); UROBILINOGEN,URINE 0.2 E.U/dL (0.2-1.0)
[2018-04-03 19:58] LABS: UA COLLECTION TYPE CLN CATCH MIDSTREAM
[2018-04-03] MEDS ORDERED: DOCU-28 PO (19:58)
[2018-04-03] MEDS ORDERED: METF500T6 PO (19:58)
[2018-04-03] MEDS ORDERED: ATOR80TA PO (19:58)
[2018-04-03] MEDS ORDERED: FURO-149 PO (19:58)
[2018-04-03] MEDS ORDERED: LISI-600 PO (19:58)
[2018-04-03] MEDS ORDERED: CARV-50 PO (19:58)
[2018-04-03] MEDS ORDERED: ASPI-611 PO (19:58)
[2018-04-03] MEDS ORDERED: CLOP75TA35 PO (19:58)
[2018-04-03] MEDS ORDERED: INSU100I31 SQ (19:58)
[2018-04-03] MEDS ORDERED: PANT20TA2 PO (19:58)
[2018-04-03] MEDS ORDERED: GABA-530 PO (19:58)
[2018-04-03] MEDS ORDERED: NITR0.4T51 SL (20:00)
[2018-04-03 20:04] LABS: BACTERIA,URINE 1+ /HPF (Neg); SQUAMOUS EPITHELIAL CELL,UR MODERATE /LPF (FEW)
[2018-04-03 20:05] LABS: FINE GRANULAR CAST 0-3 /LPF (NEGATIVE)
[2018-04-03] MEDS ORDERED: acetaminophen 325mg tablet PO PRN ×2 (22:40)
[2018-04-03] MEDS ORDERED: mag hydrox/Alum hydrox/simeth 30ml oral suspension PO PRN (22:40)
[2018-04-03] MEDS ORDERED: dextrose ORAL solution 15 GM/59 ML bottle PO PRN ×2 (22:40)
[2018-04-03] MEDS ORDERED: magnesium hydroxide 30ml (MOM) UD suspension PO PRN (22:40)
[2018-04-03] MEDS ORDERED: ondansetron/PF 4mg/2ml inj IV PRN (22:40)
[2018-04-03] MEDS ORDERED: MESSAGE TO PHARMACY PO ONE (22:40)
[2018-04-03] MEDS ORDERED: dextrose 50%-water 50ml dispensing syringe IV PRN ×2 (22:40)
[2018-04-03] MEDS ORDERED: zolpidem 5mg tablet PO PRN (22:40)
[2018-04-03] MEDS ORDERED: glucagon, human recombinant 1mg kit SUBCUT PRN (22:40)
[2018-04-03] MEDS ORDERED: insulin glargine (Lantus) pen - multi-dose SQ ONE ×2 (22:55→23:55)
[2018-04-03] MEDS ORDERED: morphine 2 MG/ML inj. syringe IV ONE (22:55)
[2018-04-03] MEDS: normal saline 1000ml 1,000 ML IV SCH (22:55)
[2018-04-04 00:20] VITALS: BP 117/74
[2018-04-04 05:15] LABS: BASOPHILS # (AUTO) 0.1 X10'3 (0-0.2); BASOPHILS % (AUTO) 0.5 % (0-1); EOSINOPHILS # (AUTO) 0.3 X10'3 (0-0.9); EOSINOPHILS % (AUTO) 2.8 % (0-6); HEMATOCRIT 28.6 % (35.0-45.0); LYMPHOCYTES # (AUTO) 3.4 X10'3 (1.1-4.8); MEAN CORPUSCULAR HEMOGLOBIN 31.6 PG (27.0-31.0); MEAN CORPUSCULAR HGB CONC 34.8 % (33.0-36.5); MEAN CORPUSCULAR VOLUME 90.8 FL (78-98); MEAN PLATELET VOLUME 9.3 FL (7.4-10.4); MONOCYTES # (AUTO) 0.8 X10'3 (0-0.9); MONOCYTES % (AUTO) 6.8 % (2-12); NEUTROPHILS # (AUTO) 7.2 X10'3 (1.8-7.7); NEUTROPHILS % (AUTO) 60.9 % (42-75); PLATELET COUNT 202 X10'3 (140-440); RED BLOOD COUNT 3.15 X10'6 (4.20-5.60); RED CELL DISTRIBUTION WIDTH 13.4 % (11.5-14.5); WHITE BLOOD COUNT 11.8 X10'3 (4.5-11.0)
[2018-04-04 05:25] LABS: HEMOGLOBIN A1C 11.7 % (4.5-6.2)
[2018-04-04 05:28] LABS: ALBUMIN 2.9 G/DL (3.4-5.0); ANION GAP 10 (8-16); BLOOD UREA NITROGEN 49 MG/DL (7-18); BUN/CREATININE RATIO 16.3 (6.6-38.0); CALCIUM 8.1 MG/DL (8.5-10.1); CHLORIDE 104 MMOL/L (99-107); GLUCOSE 242 MG/DL (70-104); POTASSIUM 3.6 MMOL/L (3.5-5.1); SODIUM 142 MMOL/L (135-145); TOTAL CARBON DIOXIDE 28.5 MMOL/L (24-32); eGFR 17 ML/MIN
[2018-04-04 07:00] VITALS: BP 132/73
[2018-04-04] MEDS: aspirin 81mg tablet.DR PO SCH (08:25)
[2018-04-04] MEDS: clopidogrel 75mg tablet PO SCH (08:26)
[2018-04-04] MEDS: gabapentin 300mg capsule PO SCH ×3 (08:26→21:56)
[2018-04-04] MEDS: carVEDilol 12.5mg tablet PO SCH ×2 (08:26→21:56)
[2018-04-04] MEDS: docusate sod 100mg capsule PO SCH (08:26)
[2018-04-04] MEDS: insulin Lispro (HumaLOG) vial - multi-dose SQ SCH ×4 (10:20→21:54)
[2018-04-04 12:00] VITALS: BP 92/52
[2018-04-04] MEDS: normal saline 1000ml 1,000 ML IV SCH (12:45)
[2018-04-04] MEDS: CefTRIAXone/D5W-Rocephin 1gm 50 ML IV SCH (17:35)
[2018-04-04 20:00] VITALS: BP 119/77
[2018-04-04] MEDS ORDERED: insulin glargine (Lantus) pen - multi-dose SQ SCH (21:00)
[2018-04-04] MEDS ORDERED: atorvastatin 20mg tablet PO SCH (21:00)
[2018-04-04] MEDS: nystatin 15 GM powder TP SCH (21:57)
[2018-04-05] VITALS: BP 129/79
[2018-04-05] MEDS: normal saline 1000ml 1,000 ML IV SCH (02:16)
[2018-04-05 05:31] LABS: BASOPHILS # (AUTO) 0.1 X10'3 (0-0.2); BASOPHILS % (AUTO) 0.6 % (0-1); EOSINOPHILS # (AUTO) 0.4 X10'3 (0-0.9); EOSINOPHILS % (AUTO) 4.2 % (0-6); HEMATOCRIT 29.1 % (35.0-45.0); HEMOGLOBIN 9.9 g/dl (12.0-16.0); LYMPHOCYTES # (AUTO) 2.9 X10'3 (1.1-4.8); LYMPHOCYTES % (AUTO) 30.4 % (21-51); MEAN CORPUSCULAR HEMOGLOBIN 31.1 PG (27.0-31.0); MEAN CORPUSCULAR HGB CONC 34.2 % (33.0-36.5); MEAN PLATELET VOLUME 9.2 FL (7.4-10.4); MONOCYTES # (AUTO) 0.6 X10'3 (0-0.9); MONOCYTES % (AUTO) 6.1 % (2-12); NEUTROPHILS # (AUTO) 5.6 X10'3 (1.8-7.7); NEUTROPHILS % (AUTO) 58.7 % (42-75); PLATELET COUNT 203 X10'3 (140-440); RED CELL DISTRIBUTION WIDTH 13.3 % (11.5-14.5); WHITE BLOOD COUNT 9.6 X10'3 (4.5-11.0)
[2018-04-05 05:38] LABS: ALBUMIN 2.8 G/DL (3.4-5.0); ANION GAP 11 (8-16); BLOOD UREA NITROGEN 37 MG/DL (7-18); CALCIUM 8.4 MG/DL (8.5-10.1); CHLORIDE 105 MMOL/L (99-107); CREATININE 1.95 MG/DL (0.40-0.90); GLUCOSE 219 MG/DL (70-104); POTASSIUM 3.4 MMOL/L (3.5-5.1); SODIUM 141 MMOL/L (135-145); TOTAL CARBON DIOXIDE 24.8 MMOL/L (24-32); eGFR 27 ML/MIN
[2018-04-05] MEDS: aspirin 81mg tablet.DR PO SCH (07:19)
[2018-04-05] MEDS: docusate sod 100mg capsule PO SCH (07:19)
[2018-04-05] MEDS: carVEDilol 12.5mg tablet PO SCH (07:19)
[2018-04-05] MEDS: CefTRIAXone/D5W-Rocephin 1gm 50 ML IV SCH (07:19)
[2018-04-05] MEDS: clopidogrel 75mg tablet PO SCH (07:19)
[2018-04-05] MEDS: gabapentin 300mg capsule PO SCH ×2 (07:19→13:19)
[2018-04-05] MEDS: nystatin 15 GM powder TP SCH ×2 (07:20→13:00)
[2018-04-05 07:56] VITALS: BP 134/80
[2018-04-05] MEDS: insulin Lispro (HumaLOG) vial - multi-dose SQ SCH ×2 (08:49→13:18)
[2018-04-05 11:18] VITALS: BP 129/71
[2018-04-05] MEDS ORDERED: magnesium 1gm/100ml D5W IVPB 100 ML IV PRN (12:35)
[2018-04-05] MEDS ORDERED: potassium Cl 20 mEq SR tablet PO PRN ×2 (12:35)
[2018-04-05] MEDS ORDERED: magnesium Cl slow-release 64mg tablet PO PRN (12:35)
[2018-04-05] MEDS ORDERED: potassium Cl 40MEQ/NS 500ml 500 ML IV PRN ×2 (12:35)
[2018-04-05] MEDS ORDERED: magnesium 4gm in 100ml NS 100 ML IV PRN (12:35)
[2018-04-05] MEDS ORDERED: GLIM1TAB46 PO (13:28)
[2018-04-05] MEDS ORDERED: FURO-150 PO (13:28)
[2018-04-05] MEDS ORDERED: METF500T6 PO (13:28)
[2018-04-05 14:15] LABS: BLOOD UREA NITROGEN 32 MG/DL (7-18); CREATININE 1.86 MG/DL (0.40-0.90); eGFR 29 ML/MIN
[2018-04-05] MEDS ORDERED: lactobacillus rhamnosus 10,000 MMU CELLS/CAPSULE PO SCH (20:00)
== END 2018-04-05 15:30 | disposition home or self-care (01) | DRG 469 ==
LOC: ER 17:29 → ED HOLD 22:38 → SUR 3N 23:45
PROVIDERS: ADMIT Internal Medicine; ATTEND Internal Medicine
DX: N17.9 Acute kidney failure, unspecified (principal); I11.0 Hypertensive heart disease with heart failure; I50.22 Chronic systolic (congestive) heart failure; E86.0 Dehydration; E89.0 Postprocedural hypothyroidism; E78.00 Pure hypercholesterolemia, unspecified; E11.9 Type 2 diabetes mellitus without complications; I25.10 Atherosclerotic heart disease of native coronary artery without angina pectoris; I25.2 Old myocardial infarction; J45.909 Unspecified asthma, uncomplicated; F32.9 Major depressive disorder, single episode, unspecified; N39.0 Urinary tract infection, site not specified; F41.9 Anxiety disorder, unspecified; Z79.02 Long term (current) use of antithrombotics/antiplatelets; Z79.82 Long term (current) use of aspirin; Z79.84 Long term (current) use of oral hypoglycemic drugs; Z79.899 Other long term (current) drug therapy; Z85.3 Personal history of malignant neoplasm of breast; Z88.1 Allergy status to other antibiotic agents; Z88.8 Allergy status to other drugs, medicaments and biological substances; Z91.011 Allergy to milk products; Z90.49 Acquired absence of other specified parts of digestive tract; Z90.12 Acquired absence of left breast and nipple; Z95.5 Presence of coronary angioplasty implant and graft; W18.39XA Other fall on same level, initial encounter; Y93.89 Activity, other specified; Y92.89 Other specified places as the place of occurrence of the external cause; Y99.8 Other external cause status
CPT/HCPCS: 36415; 80048; 80053; 81001; 82565; 82948; 83036; 84520; 85025; 87070; 87088; 93975; 96360; 99285; J0696; J1815; J2270; J7030

== ENCOUNTER 2018-12-05 12:46 | Emergency (ER) | payer MEDICAID ==
[~2018-12-05] VITALS: Ht 167.6 cm; Wt 109.5 kg
[~2018-12-05 12:46] MED LIST changes: -ALBU8.5H8 IH; +ASPI-611 PO; -ASPI81TA52 PO; -CLOP75TA33 PO; +CLOP75TA35 PO; +DOCU-28 PO; -FLO44IN INH; +FURO-150 PO; -FURO10VI51 PO; +GABA-530 PO; +INSU100I31 SQ; +METF-950 PO; -METF500T PO; -NITR0.4T48 SL; +NITR0.4T51 SL; -PANT-47 PO; +PANT20TA2 PO; -SENN1TAB72 PO
[2018-12-05 13:05] VITALS: BP 167/102
[2018-12-05] MEDS ORDERED: normal saline 1000ML IV soln IVB ONE (13:15)
[2018-12-05 14:02] LABS: BASOPHILS # (AUTO) 0.1 X10'3 (0-0.2); BASOPHILS % (AUTO) 0.7 % (0-1); EOSINOPHILS # (AUTO) 0.3 X10'3 (0-0.9); EOSINOPHILS % (AUTO) 1.8 % (0-6); HEMATOCRIT 39.8 % (35.0-45.0); HEMOGLOBIN 13.3 g/dl (12.0-16.0); LYMPHOCYTES # (AUTO) 2.2 X10'3 (1.1-4.8); LYMPHOCYTES % (AUTO) 15.5 % (21-51); MEAN CORPUSCULAR HEMOGLOBIN 29.6 PG (27.0-31.0); MEAN CORPUSCULAR HGB CONC 33.4 g/dL (33.0-36.5); MEAN CORPUSCULAR VOLUME 88.9 FL (78-98); MEAN PLATELET VOLUME 10.1 FL (7.4-10.4); MONOCYTES # (AUTO) 0.8 X10'3 (0-0.9); NEUTROPHILS # (AUTO) 10.7 X10'3 (1.8-7.7); PLATELET COUNT 246 X10'3 (140-440); RED BLOOD COUNT 4.48 X10'6 (4.20-5.60); RED CELL DISTRIBUTION WIDTH 13.5 % (11.5-14.5); WHITE BLOOD COUNT 14.1 X10'3 (4.5-11.0)
[2018-12-05 14:14] LABS: ALANINE AMINOTRANSFERASE 44 U/L (12-78); ALBUMIN 3.4 G/DL (3.4-5.0); ALBUMIN/GLOBULIN RATIO 0.7 (1.1-1.5); ALKALINE PHOSPHATASE 178 IU/L (46-116); ANION GAP 9 (8-16); ASPARTATE AMINO TRANSFERASE 21 U/L (10-37); BILIRUBIN,TOTAL 0.4 MG/DL (0.1-1.0); BLOOD UREA NITROGEN 38 MG/DL (7-18); BUN/CREATININE RATIO 26.4 (6.6-38.0); CALCIUM 9.2 MG/DL (8.5-10.1); CHLORIDE 99 MMOL/L (99-107); CREATININE 1.44 MG/DL (0.40-0.90); GLUCOSE 383 MG/DL (70-104); LIPASE 301 U/L (73-393); POTASSIUM 4.8 MMOL/L (3.5-5.1); SODIUM 134 MMOL/L (135-145); TOTAL CARBON DIOXIDE 25.9 MMOL/L (24-32); eGFR 39 ML/MIN
[2018-12-05 15:25] LABS: CLARITY,URINE CLEAR (Clear); COLOR,URINE YELLOW (Yellow); GLUCOSE, URINE >=1000 mg/dl (Neg); KETONES,URINE NEGATIVE (Neg); LEUKOCYTE ESTERASE ,URINE NEGATIVE (Neg); NITRITES, URINE NEGATIVE (Neg); OCCULT BLOOD,URINE NEGATIVE (Neg); PH,URINE 5.5 (4.8-8.0); PROTEIN,URINE NEGATIVE (Neg); UROBILINOGEN,URINE 0.2 E.U/dL (0.2-1.0)
[2018-12-05 15:26] LABS: UA COLLECTION TYPE CLN CATCH MIDSTREAM
[2018-12-05 15:34] LABS: MUCUS STRANDS NONE SEEN /LPF (Neg); SQUAMOUS EPITHELIAL CELL,UR FEW /LPF (FEW)
[2018-12-05 15:36] LABS: BACTERIA,URINE FEW /HPF (Neg)
[2018-12-05 15:37] LABS: RBC,URINE 0-2 /HPF (0-2)
[2018-12-05 15:38] LABS: WBC,URINE 0-4 /HPF (0-4)
[2018-12-05] MEDS ORDERED: insulin regular, human 10 units/0.1 ml syringe IV ONE (15:45)
[2018-12-05] MEDS ORDERED: DOXY100C43 PO (15:49)
[2018-12-05] MEDS ORDERED: CEPH-571 PO (15:49)
== END 2018-12-05 16:24 | disposition home or self-care (01) ==
LOC: ER 12:47
DX: E11.65 Type 2 diabetes mellitus with hyperglycemia (principal); J40 Bronchitis, not specified as acute or chronic; L08.9 Local infection of the skin and subcutaneous tissue, unspecified; I25.10 Atherosclerotic heart disease of native coronary artery without angina pectoris; E78.00 Pure hypercholesterolemia, unspecified; I10 Essential (primary) hypertension; I25.2 Old myocardial infarction; J45.909 Unspecified asthma, uncomplicated; Z87.01 Personal history of pneumonia (recurrent); Z90.49 Acquired absence of other specified parts of digestive tract; Z98.890 Other specified postprocedural states; Z85.3 Personal history of malignant neoplasm of breast; Z88.1 Allergy status to other antibiotic agents; Z88.8 Allergy status to other drugs, medicaments and biological substances; Z79.82 Long term (current) use of aspirin; Z79.899 Other long term (current) drug therapy; Z79.4 Long term (current) use of insulin; Z91.011 Allergy to milk products
CPT/HCPCS: 36415; 80053; 81001; 83690; 85025; 96374; 99284; J1815; J7030